=== PATIENT | female | born 1990 | race Caucasian/White ===

== ENCOUNTER 2016-03-29 07:33 | Day surgery (SDC) | payer MEDICAID ==
[2016-03-26 10:26] LABS: HEMATOCRIT 41.1 % (36.0-47.0); HEMOGLOBIN 13.7 g/dL (12.0-15.5); MEAN CORPUSCULAR HEMOGLOBIN 28.5 pg (27.0-33.4); MEAN CORPUSCULAR HGB CONC 33.2 g/dL (32.0-36.0); MEAN CORPUSCULAR VOLUME 86 fl (80-97); RED BLOOD COUNT 4.78 10^6/uL (3.72-5.28); RED CELL DISTRIBUTION WIDTH 13.3 % (11.5-14.0); WHITE BLOOD COUNT 6.3 10^3/uL (4.0-10.5)
[2016-03-26 10:32] LABS: APPEARANCE,URINE SLIGHTLY-CLOUDY; BILIRUBIN,URINE NEGATIVE (NEGATIVE); GLUCOSE, URINE NEGATIVE (NEGATIVE); KETONES,URINE NEGATIVE (NEGATIVE); LEUKOCYTE ESTERASE,URINE SMALL (NEGATIVE); NITRITE,URINE NEGATIVE (NEGATIVE); PROTEIN,URINE NEGATIVE (NEGATIVE); URINE SPECIFIC GRAVITY 1.011; UROBILINOGEN,URINE NEGATIVE mg/dL (<2.0)
[~2016-03-29 07:33] MED LIST: HYDROMORPHONE HCL INJ/PF 2 MG/ML AMPULE IV PRN; IBUPROFEN 800 MG TABLET PO PRN; LACTATED RINGERS 1000 ML IV PRN; LIDOCAINE 0.5% INJ-PF (5 MG/ML) 50 ML SDV SUBCUT PRN; OXYCODONE-ACETAMINOPHEN 5-325 MG TABLET PO PRN; RINGERS SOLUTION,LACTATED 1,000 ML IV PRN
[2016-03-29] MEDS ORDERED: FENTANYL CITRATE INJ/PF 100 MCG/2 ML AMPUL ONE ×3 (12:12→13:36)
[2016-03-29] MEDS ORDERED: MIDAZOLAM 2 MG/2 ML INJ ONE (12:12)
[2016-03-29] MEDS ORDERED: ACETAMINOPHEN 100 ML IV ONE (12:12)
[2016-03-29] MEDS ORDERED: PROPOFOL INJ 200 MG/20 ML VIAL IV ONE ×2 (12:12→13:16)
[2016-03-29] MEDS ORDERED: MORPHINE SULFATE 10 MG/ML INJ ONE (12:13)
[2016-03-29] MEDS ORDERED: BUPIVACAINE HCL 0.25 % INJ/PF (2.5 MG/1 ML) 30 ML VIAL ONE (12:13)
[2016-03-29] MEDS ORDERED: DIPHENHYDRAMINE HCL 50 MG/ML VIAL IV PRN (12:44)
[2016-03-29] MEDS ORDERED: MORPHINE SULFATE 10 MG/ML INJ IV PRN (12:44)
[2016-03-29] MEDS ORDERED: FENTANYL CITRATE INJ/PF 100 MCG/2 ML AMPUL IV PRN ×3 (12:44)
[2016-03-29] MEDS ORDERED: PROMETHAZINE HCL INJ 25 MG/1 ML VIAL IV PRN ×2 (12:44)
[2016-03-29] MEDS ORDERED: MEPERIDINE HCL/PF INJ 25 MG/1 ML DISP.SYRIN IV PRN (12:44)
[2016-03-29] MEDS ORDERED: RINGERS SOLUTION,LACTATED 1,000 ML IV PRN (13:26)
[2016-03-29] MEDS ORDERED: OXYCODONE-ACETAMINOPHEN 5-325 MG TABLET PO PRN ×2 (13:27)
[2016-03-29] MEDS ORDERED: HYDROMORPHONE HCL INJ/PF 2 MG/ML AMPULE IV PRN (13:44)
[2016-03-29] MEDS ORDERED: ROCURONIUM BROMIDE INJ 50 MG/5 ML VIAL IV ONE (13:55)
[2016-03-29] MEDS ORDERED: SUCCINYLCHOLINE CHLORIDE INJ 200 MG/10 ML VIAL ONE (13:55)
[2016-03-29] MEDS ORDERED: GLYCOPYRROLATE INJ 0.4 MG/2 ML VIAL ONE (13:55)
[2016-03-29] MEDS ORDERED: DEXAMETHASONE SOD PHOSPHATE INJ 4 MG/1 ML VIAL ONE (13:55)
[2016-03-29] MEDS ORDERED: ONDANSETRON HCL INJ/PF 4 MG/2 ML SDV ONE (13:55)
[2016-03-29] MEDS ORDERED: LIDOCAINE 2% INJ-PF (20 MG/ML) 10 ML AMPUL ONE (13:55)
[2016-03-29] MEDS ORDERED: NEOSTIGMINE METHYLSULFATE 10 MG/10 ML VIAL ONE (13:55)
[2016-03-29 16:00] VITALS: BP 119/72
--- NOTE | 2016-04-04 10:11 | Operative Report ---
Operative Report DATE OF SURGERY: 03/29/16 OPERATION: L/S Bilateral Tubal Ligation with Filschie Clips ANESTHESIA: GA PROCEDURE: Preoperative diagnosis: Multiparity, undesired future fertility, desires permanent sterilization Postoperative diagnosis: Same as above Procedure: Examination under anesthesia, Laparoscopic bilateral Tubal Ligation with Filschie Clips Group Therapist: None Anesthesia: General Endotracheal tube Anesthesiologist: Complications: None Estimated blood loss: [less than 5ml] IV fluids: [1200ml] Urine output: [200ml] Specimens: [none] Findings: [normal bilateral tubes and ovaries, filschie clips applied Normal appearing uterus.] Indications: [27 [id number] presents for permanent sterilization due to undesired future fertility. The risks/benefitts/alternatives were reviewed with the patient and she desires to proceed. She is aware this is considerred permanent sterilization and is 100% sure that she does not desire any future children. ] Procedure: The patient was taken to the operating room where general anesthesia was obtained without difficulty. The patient was then examined under anesthesia with findings as noted above with a small anteverted uterus.. She was then placed in dorsal supine lithotomy position and prepped and draped in the normal sterile fashion. DUe to patients recent LEEP procedure sponge stick was placed into the patients vagina for uterine manipulation. Attention was then turned to the patient's abdomen where a 5 mm infraumbilical skin incision was then made. The Optiview trocar with 0 laparoscope was then advanced without difficulty under direct visualization with the Optiview trocar. This was performed while tenting the abdominal wall and these will fashion. Intraperitoneal placement was confirmed by the direct visualization. Pneumoperitoneum was then obtained with approximately 4 L carbon dioxide gas. Survey of the patient's abdomen and pelvis revealed findings as noted above. A second skin incision was then made approximately 3 cm superior 4 cm medial to the anterior superior iliac spine on the left. These incisions were made under direct visualization with the laparoscope. The second trocar was then advanced under direct visualization of the laparoscope at the site. The right fallopian tube was then identified and followed out to the fimbriated end and the Filschie clip was placed in the mid ampullae portion of the fallopian tube. Attention was then turned to the left adnexa at which time the left fallopian tube was identified and followed out to the fimbriated end. The Filschie clip was then applied to the mid ampullae portion of the fallopian tube. All operative sites were visualized and noted to be hemostatic. The additional trocar on the patient's left was then removed under direct visualization. The 5 mm umbilical trocar was then removed after abdominal insufflation was removed. The skin at all trocar sites were closed with 3-0 Monocryl in a subcuticular fashion with overlying Dermabond. No antibiotics were indicated for this procedure. After completion of skin closure of the trocar sites attention was then turned to the vagina where the sponge stck uterine manipulator was removed. Sponge lap needle and instrument counts were correct 3. The patient tolerated the procedure well and was taken to the recovery area awake and in stable condition.]
== END 2016-03-29 15:40 | disposition home or self-care (01) ==
LOC: OROUT 07:33
PROVIDERS: ATTEND Student in an Organized Health Care Education/Training Program
PROC: 0UL74CZ Occlusion of Bilateral Fallopian Tubes with Extraluminal Device, Percutaneous Endoscopic Approach (ICD-10-PCS; principal; 2016-03-29 10:00)
DX: Z30.2 Encounter for sterilization (principal); F17.210 Nicotine dependence, cigarettes, uncomplicated
CPT/HCPCS: 36415; 85027; 81005; 81025 ×2; 58671; J2250; J3490 ×3; J1100; J3010; J1170; J0330; J2405; S0020; J2704; J0131; 851; J2270

== ENCOUNTER 2019-06-06 13:54 | Emergency (ER) | payer SELFPAY ==
--- NOTE | 2019-06-06 14:14 | ER Document Report ---
ED Medical Screen (RME) - General Chief Complaint: Chest Pain Stated Complaint: CHEST PAIN Time Seen by Provider: 06/06/19 13:58 Primary Care Provider: AARON STEINBERG MD [Primary Care Provider] - Follow up as needed TRAVEL OUTSIDE OF THE [place] IN LAST 30 DAYS: No - HPI Notes: 06/06/19 14:13 29-year-old female presents emergency room with complaints of epigastric and substernal chest pain that started approximately 730 this morning, pain is been constant since this morning. Patient is also reporting shortness of breath with her chest pain. Patient is a active smoker, denies a cardiac history. Denies mom and dad having any cardiac issues. Patient states she has intermittent numbness and tingling in her fingers and sometimes throughout the body surface onset. No [place] medication has been tried. Unable to reproduce chest pain. Denies any fevers or chills. Patient reports he does have history of anxiety I have greeted and performed a rapid initial assessment of this patient. A comprehensive ED assessment and evaluation of the patient, analysis of test results and completion of the medical decision making process will be conducted by additional ED providers. PHYSICAL EXAMINATION: GENERAL: Well-appearing, well-nourished and in no acute distress CV: s1, s2 regular LUNGS: No respiratory distress Musculoskeletal: Normal range of motion NEUROLOGICAL: Normal speech, normal gait. SKIN: Warm, Dry, normal turgor, no rashes or lesions noted. - Related Data Allergies/Adverse Reactions: No Known Allergies Allergy (Verified 06/06/19 14:04) Home Medications: zoloft Past Medical History - Social History Chew tobacco use (# tins/day): No Frequency of alcohol use: None Drug Abuse: None - Past Medical History Cardiac Medical History: Denies: Hx Coronary Artery Disease, Hx Heart Attack, Hx Hypertension Pulmonary Medical History: Denies: Hx Asthma, Hx Bronchitis, Hx COPD, Hx Pneumonia Neurological Medical History: Denies: Hx Cerebrovascular Accident, Hx Seizures Musculoskeltal Medical History: Denies Hx Arthritis - Immunizations Hx Diphtheria, Pertussis, Tetanus Vaccination: Yes Physical Exam - Vital signs Vitals: Temp Pulse Resp BP Pulse Ox 98.3 F 88 16 110/67 97 06/06/19 14:03 06/06/19 14:03 06/06/19 14:03 06/06/19 14:03 06/06/19 14:03 Course - Vital Signs Vital signs: Temp Pulse Resp BP Pulse Ox 98.3 F 88 16 110/67 97 06/06/19 14:03 06/06/19 14:03 06/06/19 14:03 06/06/19 14:03 06/06/19 14:03 Doctor's Discharge - Discharge Referrals: AARON STEINBERG MD [Primary Care Provider] - Follow up as needed
[2019-06-06] MEDS ORDERED: LIDOCAINE 2% VISCOUS SOLN 15 ML UDCUP PO ONE (14:50)
[2019-06-06] MEDS ORDERED: MAG HYDROX/AL HYDROX/SIMETH SUSP 30 ML UDCUP PO ONE (14:50)
--- NOTE | 2019-06-06 14:54 | ER Document Report ---
ED General - General Chief Complaint: Chest Pain Stated Complaint: CHEST PAIN Time Seen by Provider: 06/06/19 13:58 Primary Care Provider: AARON STEINBERG MD [Primary Care Provider] - Follow up as needed Notes: CHIEF COMPLAINT: Epigastric pain, chest pain, shortness of breath today HPI: 29-year-old female who is otherwise healthy other than smoking cigarettes presenting for evaluation of onset of epigastric lower chest discomfort that began around 7:30 AM today. Does not change with position or movement. Slight nausea no vomiting. Reports mild shortness of breath with the discomfort. No radiation of the discomfort into the neck shoulders or arms. States that she did develop some numbness tingling in all extremities but does state that she was breathing quickly at the time that the discomfort began. No prior history of anything similar. Has not had recent cough, travel, fever. [place] fine going to bed last night. ROS: See HPI - all other systems were reviewed and are otherwise negative Constitutional: no fever Eyes: no drainage, no blurred vision ENT: no runny nose, no sore throat Cardiovascular: + chest pain Resp: + SOB, no cough GI: no vomiting, no diarrhea, + abdominal pain : no dysuria Integumentary: no rash Allergy: no hives Musculoskeletal: no extremity pain or swelling Neurological: no numbness/tingling, no weakness MEDICATIONS: I agree with the patient medications as charted by the RN. ALLERGIES: I agree with the allergies as charted by the RN. PAST MEDICAL HISTORY/PAST SURGICAL HISTORY: Reviewed and agree as charted by RN. SOCIAL HISTORY: Reviewed and agree as charted by RN. FAMILY HISTORY: No significant familial comorbid conditions directly related to patient complaint EXAM: Reviewed vital signs as charted by RN. CONSTITUTIONAL: Alert and oriented and responds appropriately to questions. Well-appearing; well-nourished, mild distress secondary to pain HEAD: Normocephalic; atraumatic EYES: PERRL; Conjunctivae clear, sclerae non-icteric ENT: normal nose; no rhinorrhea; moist mucous membranes; pharynx without lesions noted, no uvula edema or deviation, no tonsillar hypertrophy, phonation normal NECK: Supple without meningismus; non-tender; no cervical lymphadenopathy, no masses CARD: RRR; no murmurs, no clicks, no rubs, no gallops; symmetric distal pulses RESP: Normal chest excursion without splinting or tachypnea; breath sounds clear and equal bilaterally; no wheezes, no rhonchi, no rales, pulse oximetry 99% on room air not hypoxic ABD/GI: Normal bowel sounds; non-distended; soft, mild tenderness to the epigastric region on palpation, no rebound, no guarding; no palpable organomegaly or masses. BACK: The back appears normal and is non-tender to palpation, there is no CVA tenderness EXT: Normal ROM in all joints; non-tender to palpation; no cyanosis, no effusions, no edema SKIN: Normal color for age and race; warm; dry; good turgor; no acute lesions noted NEURO: Moves all extremities equally; Motor and sensory function intact PSYCH: The patient's mood and manner are appropriate. Grooming and personal hygiene are appropriate. MDM: 29-year-old female who is otherwise healthy presenting for evaluation of epigastric pain, lower chest pain with some shortness of breath today. Patient has reproducible abdominal pain in the epigastric region. She is fairly low risk for ACS. EKG is normal sinus rhythm without ectopy. Initial screening lab work through the triage process. Pain is been constant for the last 7 hours, will obtain 1 set of screening cardiac labs. Will give GI cocktail. TRAVEL OUTSIDE OF THE [place] IN LAST 30 DAYS: No - Related Data Allergies/Adverse Reactions: No Known Allergies Allergy (Verified 06/06/19 14:04) Home Medications: zoloft Past Medical History - Social History Smoking Status: Current Every Day Smoker Chew tobacco use (# tins/day): No Frequency of alcohol use: None Drug Abuse: None Family History: Reviewed & Not Pertinent Patient has suicidal ideation: No Patient has homicidal ideation: No - Past Medical History Cardiac Medical History: Denies: Hx Coronary Artery Disease, Hx Heart Attack, Hx Hypertension Pulmonary Medical History: Denies: Hx Asthma, Hx Bronchitis, Hx COPD, Hx Pneumonia Neurological Medical History: Denies: Hx Cerebrovascular Accident, Hx Seizures Musculoskeletal Medical History: Denies Hx Arthritis - Immunizations Hx Diphtheria, Pertussis, Tetanus Vaccination: Yes Physical Exam - Vital signs Vitals: Temp Pulse Resp BP Pulse Ox 98.3 F 88 16 110/67 97 06/06/19 14:03 06/06/19 14:03 06/06/19 14:03 06/06/19 14:03 06/06/19 14:03 Course - Re-evaluation Re-evalutation: 06/06/19 16:15 Patient in no distress at this time. I spoke with her about her results. Initial screening labs including cardiac labs and abdominal labs are negative. Patient is low risk for coronary artery disease. Patient with a heart score of 1. Will place patient on Protonix, short course of pain medication, referral to GI and cardiology - Vital Signs Vital signs: Temp Pulse Resp BP Pulse Ox 98.3 F 88 16 110/67 98 06/06/19 14:03 06/06/19 14:03 06/06/19 14:03 06/06/19 14:03 06/06/19 15:11 - Laboratory Result Diagrams: 06/06/19 15:04 06/06/19 15:04 Laboratory results interpreted by me: 06/06/19 15:04 Sodium 136.2 L Discharge - Discharge Clinical Impression: Abdominal pain, acute, epigastric Chest pain Qualifiers: Chest pain type: unspecified Qualified Code(s): R07.9 - Chest pain, unspecified Condition: Stable Disposition: HOME, SELF-CARE Additional Instructions: Take the medications as prescribed no driving if taking narcotics for pain. Avoid greasy or spicy foods. Avoid smoking. Avoid chocolate peppermint or alcohol. Follow-up closely with both gastroenterology or cardiology for further evaluation. Your screening lab work, EKG and chest x-ray today did not show a cute emergent abnormalities. If you have worsening symptoms please return for reevaluation Prescriptions: Hydrocodone/Acetaminophen [Sylvester 5-325 mg Tablet] 1 tab PO Q4 PRN #10 tablet PRN Reason: Pantoprazole Sodium [Protonix [address] Tablet] 20 mg PO DAILY #30 tablet. Referrals: AARON STEINBERG MD [Primary Care Provider] - Follow up as needed ELBERT SMITH MD [ACTIVE STAFF] - Follow up as needed KEEGAN MEYERS MD [ACTIVE PROVISIONAL STAFF] - Follow up as needed
--- NOTE | 2019-06-06 15:04 | RADIOLOGY REPORT (SQ) ---
EXAM DESCRIPTION: CHEST SINGLE VIEW IMAGES COMPLETED DATE/TIME: 06/06/2019 2:55 pm REASON FOR STUDY: CP COMPARISON: None. NUMBER OF VIEWS: One view. TECHNIQUE: Single frontal radiographic view of the chest acquired. LIMITATIONS: None. FINDINGS: LUNGS AND PLEURA: No opacities, masses or pneumothorax. No pleural effusion. Attenuated bl ood vessels and flattened tabatha-diaphragms. MEDIASTINUM AND HILAR STRUCTURES: No masses. Contour normal. HEART AND VASCULAR STRUCTURES: Heart normal in size. Normal vasculature. BONES: No acute findings. HARDWARE: None in the chest. OTHER: No other significant finding. IMPRESSION: COPD. NO ACUTE RADIOGRAPHIC FINDING IN THE CHEST. TECHNICAL DOCUMENTATION: JOB ID: [id number] 2010 [employer]- All Rights Reserved Reading location - IP/workstation name: [email or web address]
[2019-06-06 15:15] LABS: ABSOLUTE BASOPHILS # (AUTO) 0.1 10^3/uL (0.0-0.2); ABSOLUTE EOSINOPHILS # (AUTO) 0.4 10^3/uL (0.0-0.6); ABSOLUTE LYMPHOCYTES (AUTO) 2.5 10^3/uL (0.5-4.7); ABSOLUTE MONOCYTES (AUTO) 0.8 10^3/uL (0.1-1.4); ABSOLUTE NEUT (AUTO) 3.1 10^3/uL (1.7-8.2); BASOPHILS % (AUTO) 1.1 % (0-2); EOSINOPHILS % (AUTO) 5.7 % (0-6); HEMOGLOBIN 13.6 g/dL (12.0-15.5); LYMPHOCYTES % (AUTO) 36.2 % (13-45); MEAN CORPUSCULAR HEMOGLOBIN 30.8 pg (27.0-33.4); MEAN CORPUSCULAR HGB CONC 34.9 g/dL (32.0-36.0); MEAN CORPUSCULAR VOLUME 88 fl (80-97); MONOCYTES % (AUTO) 11.7 % (3-13); PLATELET COUNT 239 10^3/uL (150-450); RED BLOOD COUNT 4.41 10^6/uL (3.72-5.28); RED CELL DISTRIBUTION WIDTH 12.9 % (11.5-14.0); SEGMENTED NEUTROPHILS % (AUTO) 45.3 % (42-78); TOTAL CELLS COUNTED % (AUTO) 100 %; WHITE BLOOD COUNT 6.8 10^3/uL (4.0-10.5)
[2019-06-06 15:38] LABS: ALKALINE PHOSPHATASE 58 U/L (38-126); ANION GAP 6 (5-19); ASPARTATE AMINO TRANSFERASE 18 U/L (14-36); BILIRUBIN,DIRECT 0.2 mg/dL (0.0-0.4); BILIRUBIN,TOTAL 0.6 mg/dL (0.2-1.3); BLOOD UREA NITROGEN 9 mg/dL (7-20); CALCIUM 9.4 mg/dL (8.4-10.2); CARBON DIOXIDE 26 mmol/L (22-30); CHLORIDE 104 mmol/L (98-107); GLUCOSE 86 mg/dL (75-110); POTASSIUM 4.2 mmol/L (3.6-5.0); TOTAL PROTEIN 7.2 g/dL (6.3-8.2)
[2019-06-06 16:50] LABS: APPEARANCE,URINE SLIGHTLY-CLOUDY; BILIRUBIN,URINE NEGATIVE (NEGATIVE); COLOR,URINE YELLOW; GLUCOSE, URINE NEGATIVE (NEGATIVE); KETONES,URINE NEGATIVE (NEGATIVE); LEUKOCYTE ESTERASE,URINE NEGATIVE (NEGATIVE); NITRITE,URINE NEGATIVE (NEGATIVE); PROTEIN,URINE NEGATIVE (NEGATIVE); URINE SPECIFIC GRAVITY 1.006; UROBILINOGEN,URINE NEGATIVE mg/dL (<2.0)
[2019-06-06 17:23] VITALS: BP 111/77
--- NOTE | 2019-06-06 18:58 | EKG REPORT ---
SEVERITY:- NORMAL ECG - SINUS RHYTHM : Confirmed by: Zeb oM MD 06-Jun-2019 18:57:40
== END 2019-06-06 17:24 | disposition home or self-care (01) ==
LOC: ER 13:54
DX: R07.9 Chest pain, unspecified (principal); R10.13 Epigastric pain; R06.02 Shortness of breath; F17.210 Nicotine dependence, cigarettes, uncomplicated; R11.0 Nausea; R20.0 Anesthesia of skin; R20.2 Paresthesia of skin; Z79.899 Other long term (current) drug therapy
CPT/HCPCS: 93005; 99285; 36415; 84443; 85025; 81025; 80053; 81001; 84484; 71045; 93010; J3490